=== PATIENT | female | born 1950 | race Caucasian/White ===

== ENCOUNTER → 2022-07-18 | Outpatient (CLI) | payer OTHER, SELFPAY ==
--- NOTE | 2022-07-18 14:00 | FLU_PTH ---
PATIENT: EDILBERTO LOYOLA LOC: [facility]#:[id number] AGE/SX: 72/F ROOM: RE07/18/[address]: Dr. Mark David MD : 1950 BED: DIS: 07/18/2022 SPEC #: [id number] RECD: 07/18/22 16:42 STATUS: JOLLY SHANNON #: [id number] NEERAJ: 07/18/22 14:[address]: Mark David DEPT: CYTOLOGY RECD BY: Sona Subramanian Tissues: A - Thyroid gland, NOS B - Thyroid gland, NOS C - Thyroid gland, NOS D - Thyroid gland, NOS E - Thyroid gland, NOS F - Thyroid gland, NOS Procedures: Special Stain Group II Surgery Specimen Level IV Cytospin Fluid Cytology Other HEADER OPERATION: Ultrasound-guided fine needle aspiration right superior and inferior thyroid and left inferior thyroid nodules PRE-OP DIAGNOSIS: Multiple thyroid nodules TISSUE SUBMITTED: A - FNA right inferior thyroid nodule fluid, B - FNA right inferior thyroid nodule x4 slides, C - FNA right superior thyroid nodule fluid, D - FNA right superior thyroid nodule x4 smears, E - FNA left inferior thyroid nodule fluid, F - FNA left inferior thyroid nodule fluid DIAGNOSIS CYTOLOGY A. Right inferior thyroid nodule fluid, fine needle aspiration (cytospin and cell block): Consistent with benign follicular/colloid nodule ([place] Category II). Adequate for evaluation. See comment. B. Right inferior thyroid nodule, fine needle aspiration (smears): Negative for malignant cells. See comment. C. Right superior thyroid nodule fluid, fine needle aspiration (cytospin and cell block): Consistent with benign follicular/colloid nodule ([place] Category II). Adequate for evaluation. See comment. D. Right superior thyroid nodule, fine needle aspiration (smears): Consistent with benign follicular/colloid nodule ([place] Category II). Adequate for evaluation. See comment. E. Left inferior thyroid nodule fluid, fine needle aspiration (cytospin and cell block): Consistent with benign follicular/colloid nodule ([place] Category II). Adequate for evaluation. See comment. F. Left inferior thyroid nodule, fine needle aspiration (smears): Consistent with benign follicular/colloid nodule ([place] Category II). Adequate for evaluation. See comment. SJ:rg 07/22/2022 COMMENT B. The smears are bloody. Follicular cells are not seen; however, the corresponding specimen A is adequate for evaluation. Correlation with clinical, radiologic findings and appropriate follow-up are necessary. CYTOLOGY STUDY Slides are reviewed. CYTOLOGY GROSS A - Received is 30 ml of red cloudy fluid labeled with the patient's name and and designated per the requisition as right inferior thyroid nodule. Submitted for cytology preparation including cell block. B - Received are four smears labeled with the patient's name and designated per the requisition as right inferior thyroid nodule. Submitted for staining. C - Received is 20 ml of red cloudy fluid labeled with the patient's name and and designated per the requisition as right superior thyroid nodule. Submitted for cytology preparation including cell block. D - Received are four smears labeled with the patient's name and designated per the requisition as right superior thyroid nodule. Submitted for staining. E - Received is 15 ml of fluid labeled with the patient's name and and designated per the requisition as left inferior thyroid nodule fluid. Submitted for cytology preparation including cell block. F - Received are four smears labeled with the patient's name and designated per the requisition as left inferior thyroid nodule. Submitted for staining. / kali 07/19/2022 TC:5 CPT: 68089 x6, 43220 x3
== END | disposition home or self-care (01) ==
LOC: LABSPEC 17:49
PROVIDERS: Referring Provider Surgery; Visit Provider Surgery
DX: E04.1 Nontoxic single thyroid nodule (principal)
CPT/HCPCS: 88108; 88161; 88305; 88313